=== PATIENT | female | born 1935 | race Caucasian/White ===

== ENCOUNTER 2017-02-27 13:24 | Emergency (ER) | payer MEDICARE ==
[~2017-02-27] VITALS: Ht 154.9 cm; Wt 78.0 kg
[2017-02-27 15:08] LABS: BLOOD UREA NITROGEN 11 mg/dL (7-18)
[2017-02-27 15:15] LABS: ASPARTATE AMINO TRANSFERASE 15 U/L (15-37)
[2017-02-27 15:16] LABS: ACETAMINOPHEN < 2 mcg/mL (10-30)
[2017-02-27 19:10] VITALS: BP 155/71
== END 2017-02-27 19:41 | disposition home or self-care (01) ==
LOC: ED 19:35
DX: F32.1 Major depressive disorder, single episode, moderate (principal); R10.84 Generalized abdominal pain; I10 Essential (primary) hypertension; K21.9 Gastro-esophageal reflux disease without esophagitis; E03.9 Hypothyroidism, unspecified; Z90.710 Acquired absence of both cervix and uterus
CPT/HCPCS: 36415; 74022; 80053; 80307; 80329; 81003; 83690; 85025; 93005; 99285; G0480